=== PATIENT | female | born 1980 | race Caucasian/White ===

== ENCOUNTER 2023-09-15 06:57 | Emergency (ER) | payer SELFPAY ==
[2023-09-15 06:58] VITALS: BP 155/113; PULSE 119; RESP 20; TEMP 37; O2SAT 98; BMI 44.3
--- NOTE | 2023-09-15 07:10 | EX.ED.VIS.UR ---
HPI HPI - URI History of Present Illness Chief Complaint: Cold Sx Informant: patient Onset/Context/Timing Onset: Days (5) Context: Gradual Onset Timing: Continuous Quality: Tightness Location: Chest Worsened by: Swallowing Relieved by: - (Drinking fluids) Associated Symptoms Associated Symptoms: Positive for Nasal Congestion, Shortness of Breath, Chest Pain, Hemoptysis and Productive Cough; Negative for Headache, Sinus Pressure, Myalgias, Nausea, Vomiting or Diarrhea Narrative Narrative: Patient presents with cough and fever that has been getting worse over the past 5 days. Patient states it is gradually getting worse. Patient states she feels like she has some tightness across her chest. Patient admits to some shortness of breath. Patient states that today she noted some blood in her sputum. Patient states it was small granules of blood. Patient states she has been coughing up some green and white sputum earlier this week. Patient admits to some nasal congestion and postnasal drainage. Patient denies any nausea or vomiting but admits to decreased appetite. Patient states her sore throat is worse with swallowing. Patient states it is better with drinking fluids. ROS ROS ED Constitutional Constitutional ED: Reports fever(s); Denies chills Eyes Eyes: Denies blurry vision or change in vision ENT ENT ED: Reports rhinorrhea and sore throat Cardiovascular Cardiovascular: Reports chest pain; Denies palpitations Respiratory/Chest Respiratory/Chest: Reports cough and dyspnea Gastrointestinal Gastrointestinal: Denies nausea or vomiting Genitourinary Genitourinary ED: Denies dysuria or hematuria Musculoskeletal Musculoskeletal: Denies back pain or neck pain Integumentary Reports rash; Denies abscess Neurologic Neurologic: Denies headache(s) or weakness Allergic/Immunologic Allergic/Immunologic ED: Denies mouth swelling or urticaria PFSH PFSH Medical History no medical history no medical history Home Medications amoxicillin 500 mg tablet 500 mg PO TID #30 tabs 09/15/23 [Rx Last Taken Unknown] Allergy/AdvReac Type Severity Reaction Status Date / Time topiramate [From Topamax] Allergy Mild Other Verified 09/15/23 07:00 Surgical History (Updated 09/15/23 @ 07:[address] Randall Montano DO) History of section History of tonsillectomy and adenoidectomy Hx of appendectomy Social History Smoking Status: Never smoker EXAM Physical Exam Const Vital Signs: 09/15/23 06:58 09/15/23 06:57 Temperature 98.6 F Temperature Source Oral Pulse Rate 119 H Respiratory Rate 20 H Respiratory Pattern Normal Blood Pressure 155/113 H Blood Pressure Mean 127 Pulse Ox 98 Oxygen Delivery Method Room Air Positive well nourished, well developed and obese General Appearance ED: well developed and NAD Nutritional Appearance: obese HEENT Reports moist mucous membranes Throat: posterior oropharynx abnormal Positive for cobblestoning and erythema; Negative for exudates Neck supple, no meningeal signs and no JVD Resp normal respiratory effort and clear to auscultation bilaterally Cardio Rate: tachycardic Rhythm: regular rhythm GI non-tender and non-distended Palpation: soft Neuro oriented x3, CN's II-XII intact bilaterally and no sensory deficits noted Sensorium / Orientation: alert Motor Exam: strength 5/5 throughout Psych mental status grossly normal MDM MDM MDM Narrative Medical decision making narrative: Differential diagnosis includes pneumonia, viral bronchitis, strep pharyngitis, dehydration, and electrolyte abnormality. Chest x-ray will be obtained to assess for pneumonia. COVID-19, influenza, and RSV PCR will be obtained to assess for viral infection. Rapid strep will be obtained to assess for strep pharyngitis. CBC will be obtained to assess for leukocytosis and anemia. Basic metabolic profile will be obtained to assess for electrolyte abnormality and renal function. Lab Data Attestation: I reviewed the patient's lab results. Lab results narrative: CBC was reviewed and was within normal limits. Basic metabolic profile was reviewed and was within normal limits. Rapid strep was reviewed and was positive. COVID-19 PCR was reviewed and was negative. Influenza PCR was reviewed and was positive for influenza A. RSV PCR was reviewed and was negative. Labs: Laboratory Results - last 24 hr 09/15/23 08:00 WBC 7.7 RBC 5.01 Hgb 14.2 Hct 43.3 MCV 86.4 MCH 28.3 MCHC 32.8 RDW Std Deviation 40.3 RDW Coeff of Luzma 12.8 Plt Count 256 MPV 10.5 Immature Gran % (Auto) 0.900 Neut % (Auto) 66.4 Lymph % (Auto) 18.4 L [place] % (Auto) 12.0 H Eos % (Auto) 1.8 Baso % (Auto) 0.5 Absolute Neuts (auto) 5.1 Absolute Lymphs (auto) 1.41 Nucleated RBC % 0 Sodium 136 Potassium 3.7 Chloride 106 Carbon Dioxide 24.0 Anion Gap 6 BUN 6 L Creatinine 0.69 Estim Creat Clear Calc 121.64 Est GFR (MDRD) Af Amer 118 Est GFR (MDRD) Non-Af 97 BUN/Creatinine Ratio 8.6 L Glucose 115 H Calcium 9.1 Treatment and Re-Evaluation Narrative: Patient was given IV fluids. Patient was advised of her findings. Patient was given her first dose of amoxicillin here. Patient was given a prescription for amoxicillin. Patient was instructed to drink plenty of fluids. Patient was advised that she is outside of the therapeutic window for Tamiflu. Patient was instructed to follow-up with her primary care physician in 5 to 7 days. Patient understood and was agreeable with the plan. All questions were answered. Discharge Plan Triage Chief Complaint: Cold Sx ED Provider: Randall Montano Dx/Rx/DC Orders Clinical Impression: Streptococcal pharyngitis, Influenza A Instructions: ED Influenza (Adult), ED Pharyngitis, Strep (Confirmed) Prescriptions: New amoxicillin 500 mg tablet 500 mg PO TID Qty: 30 0RF Primary Care Provider: Care Physician,No Primary Referrals: Nickolas Camacho MD [Med Staff - [employer]] - 5-7 Days NOT,DEFINED [Non-Staff] - Disposition Disposition: Home, Self Care
--- OUTSIDE RECORDS SUMMARY | 2023-09-15 07:36 | XMS RPT_ITS | CCD ---
Author Name Unknown Address [address] [place] [address] Organization [facility] Care Team Providers Care Ldr Nurse Name Role Phone Pcp, No Primary Care Provider Unavailabl e Allergies Allergy Classification Reported Allergen(s) Allergy Type Date of Onset Reaction(s) Facility (1 source) Latex Drug Allergy 6 Unknown [facility] (1 source) Salicylic Acid Drug Allergy 6 [facility] Work Phone: (1 source) Seasonal allergy Allergy to substance 6 Unknown [facility] (1 source) Shellfish Propensity to adverse reactions 6 [facility] Work Phone: (1 source) topiramate Drug Allergy 9 Mental Status Change [facility] Work Phone: (1 source) walnut allergenic extract Drug Allergy 6 Unknown [facility] (1 source) tomato plant [Other] Propensity to adverse reactions 7 [facility] Work Phone: Medications Completed/Discontinued Medications Medication Drug Class(es) Dates Sig (Normalized) Sig (Original) [id number] 200 actuat albuterol 0.09 mg/actuat metered dose inhaler (1 source) beta2-Adrenergic Agonist Start: 03-25-2018 take 2 puff(s) by inhalation every six hours as needed for wheezing albuterol HFA (PROVENTIL HFA, VENTOLIN HFA) 90 mcg/actuation inhaler Indications: Bronchitis Inhale 2 Puffs as instructed every 6 hours as needed for Wheezing/Shortnes s of Breath. 1 Inhaler 0 03/25/2018 Active Problems Active Problems Problem Classification Problem Date Documented Da te Episodic/Chronic Asthma (1 source) Mild intermittent asthma; Translations: [Mild intermittent asthma, uncomplicated] Onset: 08-08-2015 08-08-2015 Chronic Disorders of lipid metabolism (1 source) Hyperlipidemia; Translations: [Hyperlipidemia, unspecified] Onset: 08-08-2015 08-08-2015 Chronic Headache; including migraine (1 source) Refractory migraine without aura; Translations: [Migraine without aura, intractable, without status migrainosus] Onset: 04-10-2008 08-08-2015 Chronic Other upper respiratory infections (1 source) Sore throat symptom; Translations: [Acute pharyngitis, unspecified] Episodic Viral infection (1 source) Viral disease; Translations: [Viral infection, unspecified] Episodic Past or Other Problems Problem Classification Problem Date Documented Da te Episodic/Chronic Other circulatory disease (1 source) Non-neoplastic nevus; Translations: [Nevus, non-neoplastic] Onset: 04-10-2008 04-10-2008 Episodic Residual codes; unclassified (1 source) Family history of ischemic heart disease; Translations: [Family history of ischemic heart disease and other diseases of the circulatory system] Onset: 08-08-2015 08-08-2015 Episodic Sprains and strains (1 source) Shoulder strain; Translations: [Strain of unspecified muscle, fascia and tendon at shoulder and upper arm level, left arm, initial encounter] Onset: 09-13-2019 09-13-2019 Episodic Results Test Name Value Interpretation Reference Range Facil it Vital Signs Date Time Vital Sign Value Performing Clinician Hadley nathan 01-09-2022 07:45-0400 Body temperature 102.4 [degF] Sania eRza APRN.CNP Work Phone: [facility] 01-09-2022 07:45-0400 Body weight 107.68 kg Sania Reza APRN.CNP Work Phone: [facility] 01-09-2022 07:45-0400 Diastolic blood pressure 82 mm[Hg] Sania Reza APRN.HYDRAULIC LIFT DRIVER Work Phone: [facility] 01-09-2022 07:45-0400 Heart rate 115 /min Sania Reza APRN.CNP Work Phone: [facility] 01-09-2022 07:45-0400 Respiratory rate 22 /min Sania Reza APRN.CNP Work Phone: [facility] 01-09-2022 07:45-0400 SaO2% (BldA) [Mass fraction] 96 % Sania Reza APRN.CNP Work Phone: [facility] 01-09-2022 07:45-0400 Systolic blood pressure 108 mm[Hg] Sania Reza APRN.CNP Work Phone: [facility] Encounters Encounter Date Encounter Type Care Provider Facility Start: 01-09-2022 End: 01-09-2022 Patient encounter procedure Sania Reza APRN.CNP Work Phone: [facility] Procedures Date Procedure Procedure Detail Performing Clinician Start: 01-09-2022 STREP A MOLECULAR (POC) Sania Reza APRN.CNP Work Phone: Start: 09-06-2019 Mammography Sania Simmons APRN.CNP Work Phone: Plan of Treatment Date Care Activity Detail Author Start: 03-19-2022 Influenza vaccination INFLUENZA (Season Ended) [facility] tal Start: 01-09-2022 End: 01-23-2022 Influenza virus A and B RNA and SARS-CoV-2 (COVID-19) N gene panel - Respiratory specimen by KELLY with probe detection COVID WITH FLUA+B, ROUTINE Microbiology Routine Sore throat Viral illness Expected: 01/09/2022, Expires: 01/23/2022 [facility] Work Phone: Immunizations Immunization Date Immunization Notes Care Provider Angel rosas 11-07-2008 tetanus toxoid, redu tanna diphtheria toxoid, and acellular pertussis vaccine, adsorbed Sania Reza APRN.HYDRAULIC LIFT DRIVER Work Phone: [facility] Work Phone: Payers Date Payer Category Payer Unknown SPIRITISM SELF P AY SPIRITISM SELF PAY GENERIC [id number] 2021-Present [phone] [address] [place] [address] Other 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 jone [id number] (CHANDNI)_EUA This test was developed and its performance characteristics determined by [facility]'s [facility] [place]. This test has been authorized by FDA under an Emergency Use Authorization (EUA). This test has been validated in accordance with the FDA's Guidance Document Policy for Diagnostics Testing in Laboratories Certified to Perform High Complexity Testing under CLIA prior to Emergency use Authorization for Coronavirus Disease 2019 during the Public Health Emergency issued on September 16, 2019. Test performed by [facility], [facility] [place], [address] [place] [address]. INFLUENZA A PCR: Negative for Influenza A by RT-PCR INFLUENZA B PCR: Negative for Influenza B by RT-PCR [facility] Progress note 01-09-2022 Note Date & Type Note Facility 01-09-2022 Note HNO ID: [id number] Author: Sania Reza APRN.HYDRAULIC LIFT DRIVER Service: ? Author Type: Nurse Practitioner Type: Progress Notes Filed: 01/09/2022 8:55 AM Note Text: Greyson Daniela Vallejo is a 42 year old female who presents with a fever, sore throat, cough, congestion, and fatigue for 2 days. She denies chest pain or shortness of breath. Denies known exposure to sick persons but states, I work with the public. Reports taking dayquil with no relief of symptoms. Denies taking any medication for symptoms/fever today. The history is provided by the patient. No hat checker was used. Sore Throat This is a new problem. The current episode started in the past 7 days. The problem has been gradually worsening. The maximum temperature recorded prior to her arrival was 102 - 102.9 F. The fever has been present for 1 to 2 days. The pain is at a severity of 7/10. Associated symptoms include congestion and coughing (occasional productive). Pertinent negatives include no abdominal pain, diarrhea, ear pain, headaches, shortness of breath, trouble swallowing or vomiting. Treatments tried: Dayquil. The treatment provided no relief. Review of Systems Constitutional: Positive for chills, fever and malaise/fatigue. HENT: Positive for congestion and sore throat. Negative for ear pain, hearing loss, tinnitus and trouble swallowing. Respiratory: Positive for cough (occasional productive) and sputum production (green). Negative for shortness of breath and wheezing. Cardiovascular: Negative for chest pain and palpitations. Gastrointestinal: Negative for abdominal pain, constipation, diarrhea, nausea and vomiting. Skin: Negative for rash. Neurological: Negative for headaches. BP 108/82 Pulse 115 Temp (!) 39.1 ?C (102.4 ?F) Resp 22 Wt 107.7 kg (237 lb 6.4 oz) LMP 08/25/2019 SpO2 96% BMI 42.05 kg/m? PAST MEDICAL HISTORY Diagnosis Date - Carpal tunnel syndrome right wrist - Hyperlipidemia LDL goal <100 08/08/2015 - Irregular menstrual cycle - Other forms of migraine with aura. Sound/light sensitivity - Unspecified asthma(493.90) PAST SURGICAL HISTORY Procedure Laterality Date - APPENDECTOMY 1994 - DELIVERY ONLY X1 - TONSILLECTOMY PRIMARY/SECONDARY ALLERGIES Latex, Asa [Salicylates], Seasonal Allergies, Shellfish, Tomato Plant [Other], Topamax [Topiramate], and [place] MEDICATIONS MULTIVITAMIN ORAL Take by mouth. loratadine (CLARITIN) 10 mg tablet Take 10 mg by mouth once daily. albuterol HFA (PROVENTIL HFA, VENTOLIN HFA) 90 mcg/actuation inhaler Inhale 2 Puffs as instructed every 6 hours as needed for Wheezing/Shortness of Breath. ciprofloxacin HCl (CILOXAN) 0.3 % ophthalmic solution Instill 1 drop every 2 hours x 2 days. Then 1 drop every 6 hours x 5 days. olopatadine (PATANOL) 0.1 % ophthalmic solution Use 1-2 Drops in both eyes twice daily as needed. EPINEPHrine (EPIPEN 2-GABO) 0.3 mg/0.3 mL (1:1,000) auto-injector Inject 0.3 mL intramuscularly as needed (for allergic reaction.Seek emergent medical care immediately after use.Disp:one 2-pack w/head athletic trainer/strength coach). FAMILY HISTORY Problem Relation Age of Onset - Headache Mother migraine - Hypertension Father - Breast Cancer Maternal Grandmother maternal great-grandmother, age 85 - Heart Maternal Grandmother PTCA - Heart Maternal Grandfather PR - Cancer Maternal Grandfather 84 brain - Heart Paternal Grandfather PR - Psychiatry Sister depression - Psychiatry Sister depression - Breast Cancer Paternal Grandmother Social History Tobacco Use - Smoking status: Never Smoker - Smokeless tobacco: Never Used Substance Use Topics - Alcohol use: No - Drug use: No Objective Physical Exam Vitals and nursing note reviewed. Constitutional: Appearance: Normal appearance. HENT: Right Ear: Tympanic membrane, ear canal and external ear normal. Left Ear: Tympanic membrane, ear canal and external ear normal. Mouth/Throat: Lips: [place]. Mouth: Mucous membranes are moist. Pharynx: Uvula midline. Posterior oropharyngeal erythema present. No oropharyngeal exudate. Cardiovascular: Rate and Rhythm: Regular rhythm. Tachycardia present. Pulmonary: Effort: Pulmonary effort is normal. No respiratory distress. Breath sounds: Normal breath sounds. No wheezing, rhonchi or rales. Lymphadenopathy: Cervical: No cervical adenopathy. Skin: General: Skin is warm. Neurological: Mental Status: She is alert and oriented to person, place, and time. ASSESSMENT/PLAN: 1. Sore throat - ICD9: 462, ICD10: J02.9 (primary diagnosis) - suspect viral - Alere Strep Test negative, no culture pending - Discussed supportive care treatment with fluids, rest and analgesia. - STREP A MOLECULAR (POC) - COVID WITH FLUA+B, ROUTINE 2. Viral illness - ICD9: 079.99, ICD10: B34.9 - Discussed viral etiology and rationale for treatment. - Alere Strep Test negative, no culture pending - (more content not included)... [facility]-09-2022 Patient Instructions Note Date & Type Note Facility 01-09-2022 Instructions Lianet Gant - 01/09/2022 8:27 AM EDT ASSESSMENT/PLAN: 1. Sore throat - ICD9: 462, ICD10: J02.9 (primary diagnosis) - suspect viral - Alere Strep Test negative, no culture pending - Discussed supportive care treatment with fluids, rest and analgesia. - STREP A MOLECULAR (POC) - COVID WITH FLUA+B, ROUTINE 2. Viral illness - ICD9: 079.99, ICD10: B34.9 - Discussed viral etiology and rationale for treatment. - Alere Strep Test negative, no culture pending - Symptomatic treatment with prn analgesia - Supportive care with fluids and rest MADHU Perrin student How to Manage Common Symptoms Associated with COVID for Adults Fever- Fever is a temperature over 100.4 F and can occur when the body is fighting an infection. To help treat a fever: Drink plenty of fluids and stay well hydrated. Eat small amounts of easy to digest food. Rest. Your body needs rest to recover, but getting up and moving around the house frequently is a good idea. You should try to continue doing your normal daily activities (bathing, toileting, grooming, cooking), though you will probably feel tired, and need to rest often. Avoid any heavy activity or exercise, as this will increase your body temperature. Dress in light clothing and stay covered in a light sheet. Keep the room temperature cool. Take a slightly warm (not cold or cool) bath, or apply damp washcloths to the forehead and wrists. Cough- Cough is a common symptom associated with COVID and can be bothersome. To help treat a cough: Stay well hydrated. Try warm water or tea with lemon and/or honey to help soothe the cough. Use a humidifier to add moisture to the air. Try a product with menthol, like a cough drop or a rub for your chest such as Vicks, which can help reduce cough. Try cough drops. Avoid smoking and other strong odors or perfumes. Try breathing exercises to keep your lungs open and clear. Take a big deep breath through your nose and hold for 5 seconds before slowly releasing. Repeat frequently, while you are awake. Congestion- Runny nose or nasal congestion can occur with COVID. Treatment can help relieve symptoms: Try OTC nasal saline spray, or nasal saline rinse to relieve mucus congestion. Nasal strips can help keep nasal passages open, to increase airflow. Elevating your head with an extra pillow in bed can help reduce congestion. Using a humidifier can increase moisture in the air, and make breathing easier. Sore Throat- Another common symptom with COVID, can be managed at home by: Stay well hydrated. Gargle with salt water mix teaspoon salt with 1 cup of warm water and gargle. This helps to loosen mucus in the back of the throat and may reduce discomfort. Try ice chips, popsicles or lozenges to soothe the throat. Nausea/Vomiting/Diarrhea- These are common symptoms, and staying hydrated is most important. If you are nauseous or vomiting, start with small sips of water every 10-15 minutes and increase as tolerated. You can try sucking an ice cube too. If tolerating, you can try pedialyte or Gatorade, or flat sprite or aric-moiz. Start slowly and increase as you are able to. Instead of meals, try smaller, more frequent snacks. Try eating bland foods like crackers, toast, rice, and applesauce. Avoid spicy, greasy or fried foods and dairy containing foods. Even if you aren't feeling hungry due to lack of smell or taste, it is important to try to take in some food when you are able. After drinking and eating, rest in an upright position for up to two hours as needed to help decrease nauseous feelings. Try closing your eyes, avoid moving and watching TV. Avoid strong odors that can make you feel more nauseated. When to seek emergency medical attention Look for emergency warning signs for COVID-19. If having any of these symptoms, seek emergency medical care immediately: Trouble breathing Persistent pain or pressure in the chest New confusion Inability to wake or stay awake Bluish lips or face *This list is not all possible symptoms. Please call your medical provider for any other symptoms that are severe or concerning to you. documented in this encounter [facility] History of Present illness Narrative 01-09-2022 Sania Reza APRN.HYDRAULIC LIFT DRIVER - 01/09/2022 8:00 AM EDT Note Date & Type Note Facility 01-09-2022 History of Presen t illness Narrative Subjective Daniela Vallejo is a 42 year old female who presents with a fever, sore throat, cough, congestion, and fatigue for 2 days. She denies chest pain or shortness of breath. Denies known exposure to sick persons but states, I work with the public. Reports taking dayquil with no relief of symptoms. Denies taking any medication for symptoms/fever today. The history is provided by the patient. No hat checker was used. Sore Throat This is a new problem. The current episode started in the past 7 days. The problem has been gradually worsening. The maximum temperature recorded prior to her arrival was 102 - 102.9 F. The fever has been present for 1 to 2 days. The pain is at a severity of 7/10. Associated symptoms include congestion and coughing (occasional productive). Pertinent negatives include no abdominal pain, diarrhea, ear pain, headaches, shortness of breath, trouble swallowing or vomiting. Treatments tried: Dayquil. The treatment provided no relief. Review of Systems Constitutional: Positive for chills, fever and malaise/fatigue. HENT: Positive for congestion and sore throat. Negative for ear pain, hearing loss, tinnitus and trouble swallowing. Respiratory: Positive for cough (occasional productive) and sputum production (green). Negative for shortness of breath and wheezing. Cardiovascular: Negative for chest pain and palpitations. Gastrointestinal: Negative for abdominal pain, constipation, diarrhea, nausea and vomiting. Skin: Negative for rash. Neurological: Negative for headaches. BP 108/82 Pulse 115 Temp (!) 39.1 C (102.4 F) Resp 22 Wt 107.7 kg (237 lb 6.4 oz) LMP 08/25/2019 SpO2 96% BMI 42.05 kg/m PAST MEDICAL HISTORY Diagnosis Date Carpal tunnel syndrome right wrist Hyperlipidemia LDL goal <100 08/08/2015 Irregular menstrual cycle Other forms of migraine with aura. Sound/light sensitivity Unspecified asthma(493.90) PAST SURGICAL HISTORY Procedure Laterality Date APPENDECTOMY 1994 DELIVERY ONLY X1 TONSILLECTOMY PRIMARY/SECONDARY <AGE 12 ALLERGIES Latex, Asa [Salicylates], Seasonal Allergies, Shellfish, Tomato Plant [Other], Topamax [Topiramate], and [place] MEDICATIONS MULTIVITAMIN ORAL Take by mouth. loratadine (CLARITIN) 10 mg tablet Take 10 mg by mouth once daily. albuterol HFA (PROVENTIL HFA, VENTOLIN HFA) 90 mcg/actuation inhaler Inhale 2 Puffs as instructed every 6 hours as needed for Wheezing/Shortness of Breath. ciprofloxacin HCl (CILOXAN) 0.3 % ophthalmic solution Instill 1 drop every 2 hours x 2 days. Then 1 drop every 6 hours x 5 days. olopatadine (PATANOL) 0.1 % ophthalmic solution Use 1-2 Drops in both eyes twice daily as needed. EPINEPHrine (EPIPEN 2-GABO) 0.3 mg/0.3 mL (1:1,000) auto-injector Inject 0.3 mL intramuscularly as needed (for allergic reaction.Seek emergent medical care immediately after use.Disp:one 2-pack w/head athletic trainer/strength coach). FAMILY HISTORY Problem Relation Age of Onset Headache Mother migraine Hypertension Father Breast Cancer Maternal Grandmother maternal great-grandmother, age 85 Heart Maternal Grandmother PTCA Heart Maternal Grandfather PR Cancer Maternal Grandfather 84 brain Heart Paternal Grandfather PR Psychiatry Sister depression Psychiatry Sister depression Breast Cancer Paternal Grandmother Social History Tobacco Use Smoking status: Never Smoker Smokeless tobacco: Never Used Substance Use Topics Alcohol use: No Drug use: No Objective Physical Exam Vitals and nursing note reviewed. Constitutional: Appearance: Normal appearance. HENT: Right Ear: Tympanic membrane, ear canal and external ear normal. Left Ear: Tympanic membrane, ear canal and external ear normal. Mouth/Throat: Lips: [place]. Mouth: Mucous membranes are moist. Pharynx: Uvula midline. Posterior oropharyngeal erythema present. No oropharyngeal exudate. Cardiovascular: Rate and Rhythm: Regular rhythm. Tachycardia present. Pulmonary: Effort: Pulmonary effort is normal. No respiratory distress. Breath sounds: Normal breath sounds. No wheezing, rhonchi or rales. Lymphadenopathy: Cervical: No cervical adenopathy. Skin: General: Skin is warm. Neurological: Mental Status: She is alert and oriented to person, place, and time. ASSESSMENT/PLAN: 1. Sore throat - ICD9: 462, ICD10: J02.9 (primary diagnosis) - suspect viral - Alere Strep Test negative, no culture pending - Discussed supportive care treatment with fluids, rest and analgesia. - STREP A MOLECULAR (POC) - COVID WITH FLUA+B, ROUTINE 2. Viral illness - ICD9: 079.99, ICD10: B34.9 - Discussed viral etiology and rationale for treatment. - Alere Strep Test negative, no culture pending - Symptomatic treatment with prn analgesia - Supportive care with fluids and rest - COVID WITH FLUA+B, ROUTINE MADHU Perrin student TEACHING PROVIDER (Physician/PA/SUPERVISOR [employer]) NOTE OF PERSONAL INVOLVEMENT IN CARE: I have personally seen and examined the patient and performed the medical decision-making components. I have reviewed the Advanced Practice Registered Nurse (SUPERVIS[employer]) Student's documentation and verified the findings in the note as written. Any additions or changes are noted in bold/italics. Signature: Sania Reza Date: 01/09/2022 Time: 8:55 AM documented in this encounter [facility] Progress note 08-19-2021 Note Date & Type Note Facility 08-19-2021 Note HNO ID: [id number] Author: Magali Perkins MA Service: ? Author Type: Dental Hygiene Professor Type: Progress Notes Filed: 08/19/2021 3:23 PM Note Text: POPULATION HEALTH NAVIGATION OUTREACH Action/FYI Received VM from patient, asking for return call back, best time to reach her is between 3 pm and 4 pm. Contacted patient, patient declined to schedule at this time. HM was discussed, pt stated she had mammogram done at the [facility], also mentioned the building is now gone and she does not know where they moved to. I suggested to try calling the number to see if new location was offered. I also offered to call for her and pt declined. PCP changed to NO PCP. Encounter now closed. 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 / Product Type: PPO / Care Gap Reviewed:: Annual Wellness visit Breast Cancer screening Flu vaccine Reminder: Reminder note to check Health Maintenance for items below Health Maintenance items due: COVID-19 VACCINE(1) Never done DEPRESSION SCREENING Never done SPIROMETRY Never done HEPATITIS C SCREENING Never done PAP TESTING due on 08/08/2018 DTAP,TDAP,TD(2 - Td or Tdap) due on 11/07/2018 HPV TESTING due on 08/08/2020 ANNUAL PCP TEAM CHRONIC DISEASE VISIT due on 08/30/2020 MAMMOGRAM due on 09/06/2020 INFLUENZA(1) Never done Message Sent to Practice: NO Navigation Signature: Magali Perkins MA August 19, 2021 3:[address] [facility] Progress note 08-18-2021 Note Date & Type Note Facility 08-18-2021 Note HNO ID: [id number] Author: Magali Perkins MA Service: ? Author Type: Dental Hygiene Professor Type: Progress Notes Filed: 08/18/2021 4:08 PM Note Text: POPULATION HEALTH NAVIGATION OUTREACH Action/I PCP OFF BOARDING OUTREACH Attempt # 1 LMOVM No Mychart. Encounter closed. Pt identified by name and : NO Outreach Outcome/Action Unable to reach patient: Left message Reason for Outreach Attribution: Provider Off-boarding Payer: Payor: MMO / Plan: MMO [employer] / Product Type: PPO / Care Gap Reviewed:: Annual Wellness visit Breast Cancer screening Flu vaccine Reminder: Reminder note to check Health Maintenance for items below Health Maintenance items due: COVID-19 VACCINE(1) Never done DEPRESSION SCREENING Never done SPIROMETRY Never done HEPATITIS C SCREENING Never done PAP TESTING due on 08/08/2018 DTAP,TDAP,TD(2 - Td or Tdap) due on 11/07/2018 HPV TESTING due on 08/08/2020 ANNUAL PCP TEAM CHRONIC DISEASE VISIT due on 08/30/2020 MAMMOGRAM due on 09/06/2020 INFLUENZA(1) Never done Message Sent to Practice: NO Navigation Signature: Magali Perkins MA August 18, 2021 4:[address] [facility] Clinical Note 08-18-2021 Note Date & Type Note Facility 08-18-2021 Note Patient Outreach (ROXIE BRAVO) NAVEEDDANIELA Mitch ([id number]) 1980 F Date Time Provider Department 08/18/21 MAGALI PERKINS During your visit today, we recorded the following information about you: Magali Perkins MA 08/18/2021 4:08 PM Signed POPULATION HEALTH NAVIGATION OUTREACH Action/FYI PCP OFF BOARDING OUTREACH Attempt # 1 LMOVM No Mychart. Encounter closed. Pt identified by name and : NO Outreach Outcome/Action Unable to reach patient: Left message Reason for Outreach Attribution: Provider Off-boarding Payer: Payor: MMO / Plan: M[employer] / Product Type: PPO / Care Gap Reviewed:: Annual Wellness visit Breast Cancer screening Flu vaccine Reminder: Reminder note to check Health Maintenance for items below Health Maintenance items due: COVID-19 VACCINE(1) Never done DEPRESSION SCREENING Never done SPIROMETRY Never done HEPATITIS C SCREENING Never done PAP TESTING due on 08/08/2018 DTAP,TDAP,TD(2 - Td or Tdap) due on 11/07/2018 HPV TESTING due on 08/08/2020 ANNUAL PCP TEAM CHRONIC DISEASE VISIT due on 08/30/2020 MAMMOGRAM due on 09/06/2020 INFLUENZA(1) Never done Message Sent to Practice: NO Navigation Signature: Magali Perkins MA August 18, 2021 4:06 PM Magali Perkins MA 08/19/2021 3:23 PM Signed POPULATION HEALTH NAVIGATION OUTREACH Action/FYI Received VM from patient, asking for return call back, best time to reach her is between 3 pm and 4 pm. Contacted patient, patient declined to schedule at this time. HM was discussed, pt stated she had mammogram done at the [facility], also mentioned the building is now gone and she does not know where they moved to. I suggested to try calling the number to see if new location was offered. I also offered to call for her and pt declined. PCP changed to NO PCP. Encounter now closed. 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 / Product Type: PPO / Care Gap Reviewed:: Annual Wellness visit Breast Cancer screening Flu vaccine Reminder: Reminder note to check Health Maintenance for items below Health Maintenance items due: COVID-19 VACCINE(1) Never done DEPRESSION SCREENING Never done SPIROMETRY Never done HEPATITIS C SCREENING Never done PAP TESTING due on 08/08/2018 DTAP,TDAP,TD(2 - Td or Tdap) due on 11/07/2018 HPV TESTING due on 08/08/2020 ANNUAL PCP TEAM CHRONIC DISEASE VISIT due on 08/30/2020 MAMMOGRAM due on 09/06/2020 INFLUENZA(1) Never done Message Sent to Practice: NO Navigation Signature: Magali Perkins MA August 19, 2021 3:07 PM Allergies As of Date: 08/18/2021 Noted Allergy Reaction LATEX 08/08/2015 16 - Unknown Comments: Verified by skin testing ASA (SALICYLATES) 08/10/2005 SEASONAL ALLERGIES 08/08/2015 16 - Unknown Comments: Dogs, cockroaches, dust mites, molds and weeds verified by skin testing SHELLFISH 08/10/2005 tomato plant [Other] 05/20/2007 Comments: pt is able to eat tomatoes TOPAMAX (TOPIRAMATE) 11/07/2008 1 - Mental Status Change Comments: Crying, depression WALNUT 08/08/2015 16 - Unknown Comments: Verified by skin testing Date Reviewed: 08/30/2019 Reviewed by: Tiny Hernandez Ma - Fully Assessed Reason for Visit: Population Health Navigation Outreach [3910] Cmt: Offboarding - Dr Alisa SHRESTHA Prescriptions as of 08/19/2021 - MULTIVITAMIN ORAL Take by mouth. - loratadine (CLARITIN) 10 mg tablet Take 10 mg by mouth once daily. - albuterol HFA (PROVENTIL HFA, VENTOLIN HFA) 90 mcg/actuation inhaler Inhale 2 Puffs as instructed every 6 hours as needed for Wheezing/Shortness of Breath. - ciprofloxacin HCl (CILOXAN) 0.3 % ophthalmic solution Instill 1 drop every 2 hours x 2 days. Then 1 drop every 6 hours x 5 days. - olopatadine (PATANOL) 0.1 % ophthalmic solution Use 1-2 Drops in both eyes twice daily as needed. - EPINEPHrine (EPIPEN 2-GABO) 0.3 mg/0.3 mL (1:1,000) auto-injector Inject 0.3 mL intramuscularly as needed (for allergic reaction.Seek emergent medical care immediately after use.Disp:one 2-pack w/head athletic trainer/strength coach). Problem List As Of Date 08/18/2021 Noted Resolved Intractable migraine without aura [G43.019] 04/10/2008 NEVUS, NON-NEOPLASTIC [I78.1] 04/10/2008 Hyperlipidemia LDL goal <100 [E78.5] 08/08/2015 Family history of ischemic heart disease [Z82.4*08/08/2015 Mild intermittent asthma without complication [*08/08/2015 Strain of left shoulder [S46.912A] 09/13/2019 Encounter Status:Closed by MAGALI PERKINS on 08/18/[address] [facility] Clinical Note 02-07-2021 Note Date & Type Note Facility 02-07-2021 Note Patient Outreach (IN [facility]) DANIELA LUCIO I ([id number]) 1980 F Date Time Provider Department 02/07/21 ESAU CALDERON III During your visit today, we recorded the following information about you: Allergies As of Date: 02/07/2021 Noted Allergy Reaction LATEX 08/08/2015 16 - Unknown Comments: Verified by skin testing ASA (SALICYLATES) 08/10/2005 SEASONAL ALLERGIES 08/08/2015 16 - Unknown Comments: Dogs, cockroaches, dust mites, molds and weeds verified by skin testing SHELLFISH 08/10/2005 tomato plant [Other] 05/20/2007 Comments: pt is able to eat tomatoes TOPAMAX (TOPIRAMATE) 11/07/2008 1 - Mental Status Change Comments: Crying, depression WALNUT 08/08/2015 16 - Unknown Comments: Verified by skin testing Date Reviewed: 08/30/2019 Reviewed by: Tiny Hernandez Ma - Fully Assessed Visit Diagnosis:Encounter for screening mammogram for breast cancer [Z12.31] Order(s):CHRISTINE SCREENING [[id number]] Order #: [id number] FUTURE Prescriptions as of 02/10/2021 - MULTIVITAMIN ORAL Take by mouth. - loratadine (CLARITIN) 10 mg tablet Take 10 mg by mouth once daily. - albuterol HFA (PROVENTIL HFA, VENTOLIN HFA) 90 mcg/actuation inhaler Inhale 2 Puffs as instructed every 6 hours as needed for Wheezing/Shortness of Breath. - ciprofloxacin HCl (CILOXAN) 0.3 % ophthalmic solution Instill 1 drop every 2 hours x 2 days. Then 1 drop every 6 hours x 5 days. - olopatadine (PATANOL) 0.1 % ophthalmic solution Use 1-2 Drops in both eyes twice daily as needed. - EPINEPHrine (EPIPEN 2-GABO) 0.3 mg/0.3 mL (1:1,000) auto-injector Inject 0.3 mL intramuscularly as needed (for allergic reaction.Seek emergent medical care immediately after use.Disp:one 2-pack w/head athletic trainer/strength coach). Problem List As Of Date 02/07/2021 Noted Resolved Intractable migraine without aura [G43.019] 04/10/2008 NEVUS, NON-NEOPLASTIC [I78.1] 04/10/2008 Hyperlipidemia LDL goal <100 [E78.5] 08/08/2015 Family history of ischemic heart disease [Z82.4*08/08/2015 Mild intermittent asthma without complication [*08/08/2015 Strain of left shoulder [S46.912A] 09/13/2019 Encounter Status:Closed by CHRISTINE HERNANDEZ on 02/10/[address] [facility] Evaluation note Note Date & Type Note [facility] Infection Onset Date Last Indicated Resolved Time COVID-19 Rule-Out 01/09/2022 01/09/2022 Summary Purpose Family History No Family History Records Found Advance Directives No Advanced Directives Records Found Additional Source Comments Source Comments (unrecognize d section and content) In the event this informatio n is protected by the Federal Confidentiality of Alcohol and Drug Abuse Patient Records regulations: The Federal rules restrict any use of the information to criminally investigate or prosecute any alcohol or drug abuse patient.[facility] Reason for Visit (unrecogniz ed section and content) Care Teams (unrecognized sec tion and content) INFORMATION SOURCE (unrecogn ized section and content) FOR RECORDS PERTAINING TO PATIENTS WHO ARE OR HAVE BEEN ENROLLED IN A CHEMICAL DEPENDENCY/SUBSTANCEABUSE PROGRAM, SOME INFORMATION MAY BE OMITTED. This clinical summary was aggregated from multiple sources. Caution should be exercised in using it in the provision of clinical care. This summary normalizes information from multiple sources, and as a consequence, information in this document may materially change the coding, format and clinical context of patient data. In addition, data may be omitted in some cases. CLINICAL DECISIONS SHOULD BE BASED ON THE PRIMARY CLINICAL RECORDS. [employer] provides no warranty or guarantee of the accuracy or completeness of information in this document.
[2023-09-15 08:08] LABS: Absolute Lymphocyte Count 1.41 X10^3/uL (0.83-4.51); Absolute Neutrophil Count 5.1 X10^3/uL (2.0-7.7); Basophil# 0.04 X10^3/uL; Basophil% 0.5 % (0-1); Eosinophil# 0.14 X10^3/uL; Eosinophils% 1.8 % (0-5); Hematocrit 43.3 % (37-47); Hemoglobin 14.2 g/dL (12.0-15.0); Lymphocyte # 1.41 X10^3/ul (0.83-4.51); Lymphocyte % 18.4 % (19-41); Mean Corp Hgb Conc 32.8 g/dL (32-36); Mean Corpuscular Hgb 28.3 pg (27.0-32.0); Mean Corpuscular Volume 86.4 fL (81-99); Mean Platelet Vol. 10.5 fl (6.2-12.0); Monocyte# 0.92 X10^3/uL; NRBC Flagged by Analyzer 0 % (0-5); Neutrophil # 5.07 X10^3/uL (2.7-7.7); Neutrophil % 66.4 % (47-70); Platelet Count 256 K/mm3 (150-450); RBC Distribution Width CV 12.8 % (11.6-14.6); RBC Distribution Width SD 40.3 fl (35.1-43.9); Red Blood Count 5.01 M/mm3 (4.2-5.4); White Blood Count 7.7 K/mm3 (4.4-11.0)
[2023-09-15 08:24] LABS: Anion Gap 6 (5-15); BUN 6 mg/dL (7-18); BUN/Creat Ratio 8.6 RATIO (10-20); Calcium,Total 9.1 mg/dL (8.5-10.1); Chloride 106 mmol/L (98-107); Creatinine, Serum 0.69 mg/dL (0.55-1.02); EST Glomerular Filtration Rate 97 mL/min (>60); Est Glom Filt Rate - Afr Amer 118 mL/min (>60); Estimated Creatinine Clearance 121.64 ml/min; Glucose 115 mg/dL (74-106); Potassium 3.7 mmol/L (3.5-5.1); Sodium Level 136 mmol/L (136-145)
[2023-09-15] MEDS: 0.9% Normal Saline (1000mL) 1,000 ML 1000 ML IV (08:30)
[2023-09-15 09:00] VITALS: BP 132/78; PULSE 64; RESP 16; TEMP 36.4; O2SAT 98
[2023-09-15] MEDS: AMOXICILLIN 500 MG CAPSULE PO (09:14)
== END 2023-09-15 09:44 | disposition home or self-care (01) ==
PROVIDERS: Emergency Provider Emergency Medicine; Visit Provider Emergency Medicine
DX: J10.1 Influenza due to other identified influenza virus with other respiratory manifestations (principal); J02.0 Streptococcal pharyngitis; Z90.49 Acquired absence of other specified parts of digestive tract
CPT/HCPCS: 80048; 85025; 87631; 87651; 96360; 99283; J7030; A4216